=== PATIENT | female | born 2000 | race Two or more races ===

== ENCOUNTER 2023-02-04 15:20 | Emergency (ER) | payer MEDICAID, OTHER ==
[~2023-02-04] VITALS: Ht 154.9 cm; Wt 82.2 kg
[2023-02-04 16:16] LABS: Urine Bacteria NONE SEEN /hpf (None Seen); Urine Blood 3+ /uL (Negative); Urine Mucus FEW (None Seen); Urine Specific Gravity 1.023 (1.001-1.035); Urine WBC 3 /hpf (0 - 5)
[2023-02-04 16:25] VITALS: BP 161/104
[2023-02-04 16:38] LABS: Basophils # (auto) 0.1 10 ^3/uL (0-0.2); Basophils % (auto) 0.9 % (0.0-2.0); Eosinophils # (auto) 0.1 10 ^3/uL (0-0.8); Eosinophils % (auto) 1.6 % (0.0-7.0); Hematocrit 44.8 % (36.0-46.0); Hemoglobin 15.4 g/dL (12.2-16.2); Lymphocytes # (auto) 2.8 10 ^3/uL (0.4-5.4); Lymphocytes % (auto) 36.6 % (10.0-50.0); Mean Corpuscular Hemoglobin 28.3 pg (28.0-32.0); Mean Corpuscular Hgb Conc. 34.3 g/dL (32.0-36.0); Mean Corpuscular Volume 82.5 fL (80.0-100.0); Monocytes # (auto) 0.4 10 ^3/uL (0-1.3); Monocytes % (auto) 5.4 % (0.0-12.0); Neutrophils # (auto) 4.2 10 ^3/uL (1.6-8.6); Neutrophils % (auto) 55.5 % (37.0-80.0); Nucleated Red Blood Cells % 0.1 %; Red Blood Cells 5.43 10^6/uL (4.0-5.20); Red Cell Distribution Width 13.4 % (11.8-14.3); White Blood Cell 7.6 10^3/uL (4.4-10.8)
[2023-02-04 16:49] LABS: Calcium 9.1 mg/dL (8.5-10.1); Potassium 3.7 mmol/L (3.5-5.1)
[2023-02-04] MEDS ORDERED: ACETAMINOPHEN 500 MG TAB PO ONE (17:15)
[2023-02-04] MEDS ORDERED: NAPR-746 PO (17:31)
== END 2023-02-04 17:36 | disposition home or self-care (01) ==
LOC: ER 15:20
DX: G44.209 Tension-type headache, unspecified, not intractable (principal); N92.0 Excessive and frequent menstruation with regular cycle
CPT/HCPCS: 36415; 70450; 80048; 81001; 81025; 82962; 85025

== ENCOUNTER 2024-05-15 10:48 | Emergency (ER) | payer MEDICAID, OTHER ==
[~2024-05-15] VITALS: Ht 152.4 cm; Wt 80.8 kg
[~2024-05-15 10:48] MED LIST: NAPR-746 PO
[2024-05-15 11:50] VITALS: BP 147/106; RESP 18; TEMP 99.5; O2SAT 97
[2024-05-15] MEDS: SODIUM CHLORIDE 0.9% 1,000 ML IV ONE (13:00)
[2024-05-15] MEDS: DICYCLOMINE HCL (10MG/ML) 2 ML AMPULE IM ONE (13:00)
[2024-05-15 14:24] VITALS: PULSE 110
[2024-05-15] MEDS ORDERED: AUG875T PO (14:59)
[2024-05-15] MEDS ORDERED: IBUP1TAB5 PO (14:59)
== END 2024-05-15 15:00 | disposition home or self-care (01) ==
LOC: ER 11:01
DX: H92.03 Otalgia, bilateral (principal); N94.6 Dysmenorrhea, unspecified; R03.0 Elevated blood-pressure reading, without diagnosis of hypertension; R10.9 Unspecified abdominal pain; Z79.899 Other long term (current) drug therapy
CPT/HCPCS: 96360; 96361; 96372; 99283; J0500; J7030

== ENCOUNTER 2025-03-27 13:33 | Emergency (ER) | payer OTHER ==
[~2025-03-27] VITALS: Ht 152.4 cm; Wt 82.0 kg
[~2025-03-27 13:33] MED LIST changes: +AUG875T PO; +IBUP1TAB5 PO
[2025-03-27 14:24] LABS: Urine Protein, UAD Negative (Negative)
[2025-03-27 14:29] LABS: Hematocrit 45.5 % (36.0-46.0); Hemoglobin 15.9 g/dL (12.2-16.2); Mean Corpuscular Hemoglobin 28.6 pg (28.0-32.0); Mean Corpuscular Volume 81.9 fL (80.0-100.0); Nucleated Red Blood Cells % 0.1 %
[2025-03-27 14:32] LABS: Chloride 104 mmol/L (98-107); Potassium 4.0 mmol/L (3.5-5.1); Sodium 141 mmol/L (136-145)
[2025-03-27 14:33] LABS: Anion Gap 11 (5-15); Calcium 9.9 mg/dL (8.7-10.4); Carbon Dioxide 26 mmol/L (20-31)
--- NOTE | 2025-03-27 14:34 | ED.PDOC ---
General HPI Comments A 24 YEAR OLD FEMALE PRESENTS TO THE ED WITH COMPLAINT OF UTI SYMPTOMS. PATIENT STATES SHE HAS BEEN EXPERIENCING PAINFUL URINATION THAT STARTED TODAY. PATIENT REPORTS SHE HAS ALSO BEEN EXPERIENCING LEFT HIP PAIN THAT RADIATES DOWN HER RIGHT LEG THAT STARTED TODAY. PATIENT DENIES HEMATURIA, FLANK PAIN, SADDLE ANESTHESIA, URINARY INCONTINENCE, BOWEL INCONTINENCE, FEVER, CHILLS, SHORTNESS OF BREATH, CHEST PAIN, ABDOMINAL PAIN, NAUSEA, VOMITING, HEADACHE, OR OTHER COMPLAINTS. NO OTHER SYMPTOMS OR MODIFYING FACTORS AT THIS TIME. PATIENT IS ALERT, ORIENTED X 4, AND HAS STEADY GAIT. Chief Complaint: Urinary Time Seen by MD: 13:37 Primary Care Provider: LONIIES Reviewed notes: Nurses Notes, Medications, Allergies Allergies: Coded Allergies: NO KNOWN ALLERGIES (Unverified , 02/04/23) Home Meds Active Scripts Hydrochlorothiazide W/Triamter (Dyazide 37.5/25MG) 1 Cap Cp, 1 CAP PO DAILY, #20 CAP Prov:CM GIRARD 03/27/25 Ibuprofen (Ibuprofen) 800 Mg Tab, 1 TAB PO TID, #30 TAB Prov:CM GIRARD 03/27/25 Amoxicillin & Pot Clavulanate (AUGMENTIN TABLET) 875 Mg Tb, 875 MG PO BID for 7 Days, #14 TAB 0 Refills Prov:EDWAR LEGGETT NP 05/15/24 Ibuprofen Micronized (Ibuprofen) 600 Mg Tab, 600 MG PO TID for 10 Days, #30 TAB 0 Refills Prov:EDWAR LEGGETT NP 05/15/24 Naproxen (Naproxen) 500 Mg Tab, 500 MG PO BID, #30 TAB Prov:CM GIRARD 02/04/23 Information Source: Patient Mode of Arrival: Ambulatory Severity: Moderate Inability to void: None Timing: Hours Duration: Since onset, Hours Prehospital treatment: None Onset: Spontaneous Symptoms: Dysuria, Other (LEFT HIP PAIN THAT RADAITES DOWN LEFT LEG) History of: None Location: None Modifying factors: None associated signs and symptoms: Dysuria Past Medical History PAST MEDICAL HISTORY: HTN Surgical History: Denies all surgeries MANGANESE WHEELER History: Denies all MANGANESE WHEELER Hx Family History Family History: Reviewed,noncontributory to illness Social History Smoker: Non-Smoker Alcohol: Denies ETOH Use Drugs: Denies Drug Use Lives In: Home Constitutional: denies: chills, diaphoresis, fatigue, fever, malaise, sweats, weakness, others EENTM: denies: blurred vision, double vision, ear bleeding, ear discharge, ear drainage, ear pain, ear ringing, eye pain, eye redness, hearing loss, mouth pain, mouth swelling, nasal discharge, nose bleeding, nose congestion, nose pain, photophobia, tearing, throat pain, throat swelling, voice changes, others Respiratory: denies: cough, hemoptysis, orthopnea, SOB at rest, shortness of breath, SOB with excertion, stridor, wheezing, others Cardiovascular: denies: chest pain, dizzy spells, diaphoresis, Dyspnea on exertion, edema, irregular heart beat, left arm pain, lightheadedness, palpitations, PND, syncope, others Gastrointestinal: denies: abdomen distended, abdominal pain, blood streaked bowels, constipated, diarrhea, dysphagia, difficulty swallowing, hematemesis, melena, nausea, poor appetite, poor fluid intake, rectal bleeding, rectal pain, vomiting, others Genitourinary: reports: dysuria; denies: abnormal vagina bleeding, burning, dyspareunia, flank pain, frequency, hematuria, incontinence, pain, , vagina discharge, urgency, others Neurological: denies: dizziness, fainting, headache, left sided numbness, left sided weakness, numbness, paresthesia, pre-existing deficit, right sided numbness, right sided weakness, seizure, speech problems, tingling, tremors, weakness, others Musculoskeletal: reports: others (LEFT HIP PAIN THAT RADIATES DOWN LEFT LEG); denies: back pain, gout, joint pain, joint swelling, muscle pain, muscle stiffness, neck pain Integumetry: denies: bruises, change in color, change in hair/nails, dryness, laceration, lesions, lumps, rash, wounds, others Allergic/Immunocompromised: denies: Difficulty Healing, Frequent Infections, Hives, Itching, others Hematologic/Lymphatic: denies: anemia, blood clots, easy bleeding, easy bruising, swollen glands, others Endocrine: denies: excessive hunger, excessive sweating, excessive thirst, excessive urination, flushing, intolerance to cold, intolerance to heat, unexplained weight gain, unexplained weight loss, others Psychiatric: denies: anxiety, bipolar disorder, depression, hopeless, panic disorder, schizophrenia, sleepless, suicidal, others All Other Systems: Reviewed and Negative Physical Exam General Appearance: No Apparent Distress, Obese HEENT: Normal ENT Inspection, PERRL/EOMI, Pharynx Normal, TMs Normal Neck: Full Range of Motion, Non-Tender, Normal, Normal Inspection Respiratory: Chest Non-Tender, Lungs Clear, No Accessory Muscle Use, No Respiratory Distress, Normal Breath Sounds Cardiovascular: No Edema, No JVD, No Murmur, No Gallop, Normal Peripheral Pu lses, Regular Rate/Rhythm Breast Exam: Deferred Gastrointestinal: No Organomegaly, Non Tender, No Pulsatile Mass, Normal Bowel Sounds, Soft, Suprapubic (PRESSURE, NO GUARDING AND REBOUND TENDERNESS. ), Tenderness Genitalia: Deferred Pelvic: Deferred Rectal: Deferred Extremities: No calf tenderness, Normal capillary refill, Normal inspection, Normal range of motion, Non-tender, No pedal edema Musculoskeletal : Location: Bilateral Extremity Location: Back Apperance: Tenderness (LEFT SIDE HIP TO LEFT LOWER LEG, NO BONY TENDERNESS, SWELLING AND DEFORMITY. 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 Was a procedure done?: No Differential Diagnosis Kidney stone (Female): Musculoskeletal pain, N/A Kidney stone (Male): N/A Penile/Scrotal: N/A Urinary Problem (Male): N/A Urinary Problem (Female): Pyelonephritis, Urolithiasis, UTI, Vaginitis X-Ray, Labs, Meds, VS Vital Signs Date Time Temp Pulse Resp B/P (MAP) Pulse Ox O2 Delivery O2 Flow Rate FiO2 03/27/25 14:50 179/100 03/27/25 14:24 97 18 179/100 (126) 99 03/27/25 13:37 98.2 91 16 185/120 96 98.2 Lab Test 03/27/25 14:06 03/27/25 13:47 Range/Units White Blood Count 9.7 4.4-10.8 10^3/uL Red Blood Count 5.56 H 4.0-5.20 10^6/uL Hemoglobin 15.9 12.2-16.2 g/dL Hematocrit 45.5 36.0-46.0 % Mean Corpuscular Volume 81.9 80.0-100.0 fL Mean Corpuscular Hemoglobin 28.6 28.0-32.0 pg Mean Corpuscular Hemoglobin Concent 34.9 32.0-36.0 g/dL Red Cell Distribution Width 14.0 11.8-14.3 % Platelet Count 403 140-450 10^3/uL Mean Platelet Volume 7.3 6.9-10.8 fL Neutrophils (%) (Auto) 53.6 37.0-80.0 % Lymphocytes (%) (Auto) 38.1 10.0-50.0 % Monocytes (%) (Auto) 6.0 0.0-12.0 % Eosinophils (%) (Auto) 1.7 0.0-7.0 % Basophils (%) (Auto) 0.6 0.0-2.0 % Neutrophils # (Auto) 5.2 1.6-8.6 10 ^3/uL Lymphocytes # (Auto) 3.7 0.4-5.4 10 ^3/uL Monocytes # (Auto) 0.6 0-1.3 10 ^3/uL Eosinophils # (Auto) 0.2 0-0.8 10 ^3/uL Basophils # (Auto) 0.1 0-0.2 10 ^3/uL Nucleated Red Blood Cells 0.1 % Sodium Level 141 136-145 mmol/L Potassium Level 4.0 3.5-5.1 mmol/L Chloride Level 104 98-107 mmol/L Carbon Dioxide Level 26 20-31 mmol/L Anion Gap 11 5-15 Blood Urea Nitrogen 14 9-23 mg/dL Creatinine 0.91 0.550-1.02 mg/dL Glomerular Filtration Rate Calc 91 >90 mL/min BUN/Creatinine Ratio 15.4 10.0-20.0 Serum Glucose 89 74-106 mg/dL Calcium Level 9.9 8.7-10.4 mg/dL Urine Color Light-yellow Yellow Urine Clarity Clear Clear Urine pH 5.5 5.0-9.0 Urine Specific [place] 1.016 1.001-1.035 Urine Protein Negative Negative Urine Ketones Negative Negative Urine Blood 2+ H Negative /uL Urine Nitrite Negative Negative Urine Bilirubin Negative Negative Urine Urobilinogen Normal Negative mg/dL Urine Leukocyte Esterase Negative Negative /uL Urine RBC 89 0 - 4 /hpf Urine Microscopic WBC 4 0-5 /HPF Urine Squamous Epithelial Cells Few <5 /hpf Urine Bacteria None seen None Seen /hpf Urine Mucus Few None Seen Urine Glucose Normal Normal mg/dL Current Medications Medications (Trade) Dose Ordered Sig/Ronny Route Start Time Stop Time Status Last Admin Clonidine HCl (Catapres Tablet) 0.2 mg ONCE ONCE PO 03/27/25 14:30 03/27/25 14:31 DC 03/27/25 14:50 Exam: CT CT AB PEL WO CON-NO ORAL OR IV History: LEFT SIDE LOW BACK PAIN WITH BLOOD IN THE URINE Comparison Study: None TECHNIQUE: Multidetector CT of the abdomen and pelvis was performed from lung bases to pubic symphysis. Imaging was performed without IV contrast. Axial, coronal, and sagittal multiplanar reformats were obtained from the axial data set by the technologist. RADIATION DOSE: DLP 751.4 mGy.cm; CTDI vol 13.72 mGy. Findings: Lungs: The lung bases are clear. Heart: No cardiomegaly or pericardial effusion. Liver: Fatty infiltration of the liver. Gallbladder: Unremarkable. Spleen: Unremarkable Pancreas: Unremarkable Adrenals: Unremarkable Kidneys: Unremarkable. No nephroureterolithiasis. Mild left hydroureter. GI tract: Unremarkable : Bilateral ovarian cysts. Unremarkable. Vasculature: Unremarkable Lymphadenopathy: Mildly prominent mesenteric lymph nodes in the right lower quadrant. Peritoneum: No ascites Musculoskeletal: Unremarkable Soft tissues: Unremarkable Impression: 1. No acute abdominopelvic abnormalities. 2. Hepatic steatosis. 3. Mild left hydroureter with no definite nephroureterolithiasis. May reflect recently passed ureteral calculus. 4. Mildly prominent right lower quadrant mesenteric nodes. Correlate for mesenteric adenitis. ATED BY: KIMBERLY JONES DO DICTATED DATE/TIME: 03/27/251524 SIGNED BY: KIMBERLY JONES DO SIGNED DATE/TIME: 03/27/251524 CC: X-Ray, Labs, Meds, VS Comment EXTERNAL MEDICAL RECORDS REVIEWED: [NONE] INDEPENDENT HISTORIANS: [NONE] SOCIAL DETERMINANTS OF HEALTH: [NONE] LABS ORDERED: CBC, BMP, UA REVIEWED AND INTERPRETED RESULTS: BLOOD 2+ IMAGING ORDERED: CT ABD/PEL TREATMENTS ORDERED: CLONIDINE 0.2MG PO PROCEDURES PERFORMED: NONE CRITICAL CARE TIME: NONE I HAVE DISCUSSED THE PATIENT WITH THE ATTENDING PHYSICIAN DR. PATY AVILA AND SHE AGREES WITH THE PATIENT'S PLAN OF CARE AND DISPOSITION. BASED ON HISTORY OF PRESENT ILLNESS, AND PHYSICAL EXAM, PATIENT WILL BE DISCHARGED HOME. DISCUSSED PLAN FOR DISCHARGE HOME WITH RX [IBUPROFEN 800MG AND KEFLEX]. MEDICATION WARNINGS GIVEN. SHARED DECISION MAKING: PATIENT INSTRUCTED TO FOLLOW UP WITH PRIMARY CARE PROVIDER IN 1-2 DAYS FOR RE-EVALUATION OF SYMPTOMS. PATIENT VERBALIZES UNDERSTANDING TO RETURN TO ED FOR NEW OR WORSENING SYMPTOMS OR IF FOLLOW UP WITH PCP CANNOT BE OBTAINED. PATIENT FEELS COMFORTABLE GOING HOME AT THIS TIME. ALL QUESTIONS ADDRESSED AT TIME OF DISCHARGE. Images Reviewed?: Images reviewed and evaluated by me Time of 1ST Reevaluation: 16:00 Reevaluation 1ST: Improved Patient Education/Counseling: Diagnosis, Treatment, Need For Follow Up Family Education/Counseling: Diagnosis, Treatment, Need For Follow Up Medical Screening: No EMC Exist At This Time SEPSIS Sepsis Screen Date sepsis recognized/suspect: Mar 27, 2025 Time Sepsis recognized/suspect: 1338 Recent Procedure: No On Antibiotic Therapy: No Respiratory Rate >20: No Heart Rate >90: Yes Temp<36 C (96.8 F) or >38.3 C: No SBP <90 or MAP <65 mmHG: No New Acute Mental Status Change: No Is the patient on CPAP, BIPAP,: No Physician Orders Ct Ab Pel Wo Con-No Oral Or Iv (03/27/25 14:48) Vital Signs Date Time Temp Pulse Resp B/P (MAP) Pulse Ox O2 Delivery O2 Flow Rate FiO2 03/27/25 14:50 179/100 03/27/25 14:24 97 18 179/100 (126) 99 03/27/25 13:37 98.2 91 16 185/120 96 98.2 Laboratory Tests Test 03/27/25 14:06 White Blood Count 9.7 10^3/uL (4.4-10.8) Medications Medications Dose Ordered Sig/Ronny Route Start Time Stop Time Status Last Admin Dose Admin Clonidine HCl 0.2 mg ONCE ONCE PO 03/27/25 14:30 03/27/25 14:31 DC 03/27/25 14:50 Departure 1 Departure Time of Disposition: 16:00 Impression: Primary Impression: Left renal stone Additional Impressions: Hypertension Qualified Codes: I10 - Essential (primary) hypertension Noncompliance with medication regimen Disposition: HOME / SELF CARE / HOMELESS Condition: Stable Additional Instructions: FOLLOW-UP WITH PCP IN 1 TO 2 DAYS. TAKE MEDICATIONS PRESCRIBED. RETURN TO ED FOR ANY NEW OR WORSENING SYMPTOMS. e-Prescriptions Hydrochlorothiazide W/Triamter (Dyazide 37.5/25MG) 1 Cap Cp 1 CAP PO DAILY, #20 CAP Prov: CM GIRARD 03/27/25 Ibuprofen (Ibuprofen) 800 Mg Tab 1 TAB PO TID, #30 TAB Prov: CM GIRARD 03/27/25 Discharged With: Self, Relative Critical Care Note Critical Care Time?: No Stability Stability form required: No I personally scribed for CM GIRARD ([email or web address]) on 03/27/25 at 14:34. Electronically submitted by Eben Pimentel ([email or web address]). I personally scribed for CM GIRARD ([email or web address]) on 03/27/25 at 15:41. Electronically submitted by Eben Pimentel ([email or web address]). CM GIRARD Mar 27, 2025 14:34
[2025-03-27 14:38] LABS: BUN/Creatinine Ratio 15.4 (10.0-20.0); Blood Urea Nitrogen 14 mg/dL (9-23); Glucose 89 mg/dL (74-106)
--- NOTE | 2025-03-27 15:28 | DVH ---
Exam: CT CT AB PEL WO CON-NO ORAL OR IV History: LEFT SIDE LOW BACK PAIN WITH BLOOD IN THE URINE Comparison Study: None TECHNIQUE: Multidetector CT of the abdomen and pelvis was performed from lung bases to pubic symphysi s. Imaging was performed without IV contrast. Axial, coronal, and sagittal multiplanar reformats were obtained from the axial data set by the technologist. RADIATION DOSE: DLP 751.4 mGy.cm; CTDI vol 13.72 mGy. Findings: Lungs: The lung bases are clear. Heart: No cardiomegaly or pericardial effusion. Liver: Fatty infiltration of the liver. Gallbladder: Unremarkable. Spleen: Unremarkable Pancreas: Unremarkable Adrenals: Unremarkable Kidneys: Unremarkable. No nephroureterolithiasis. Mild left hydroureter. GI tract: Unremarkable : Bilateral ovarian cysts. Unremarkable. Vasculature: Unremarkable Lymphadenopathy: Mildly prominent mesenteric lymph nodes in the right lower quadrant. Peritoneum: No ascites Musculoskeletal: Unremarkable Soft tissues: Unremarkable Impression: 1. No acute abdominopelvic abnormalities. 2. Hepatic steatosis. 3. Mild left hydroureter with no definite nephroureterolithiasis. May reflect recently passed uretera l calculus. 4. Mildly prominent right lower quadrant mesenteric nodes. Correlate for mesenteric adenitis.
[2025-03-27] MEDS ORDERED: TRIA37.587 PO (15:54)
[2025-03-27] MEDS ORDERED: IBUP-1456 PO (15:54)
[2025-03-27 15:59] VITALS: BP 137/97; PULSE 97; RESP 14; TEMP 98.3; O2SAT 97
[2025-03-27] MEDS: KETOROLAC TROMETH 60MG/2ML VIAL IM ONE (15:59)
== END 2025-03-27 16:08 | disposition home or self-care (01) ==
LOC: ER 13:33
DX: N20.0 Calculus of kidney (principal); I10 Essential (primary) hypertension; Z79.899 Other long term (current) drug therapy
CPT/HCPCS: 36415; 74176; 80048; 81001; 85025; 96372; 99285; J1885